=== PATIENT | female | born 1990 | race Caucasian/White ===

== ENCOUNTER 2017-09-05 16:29 | Emergency (ER) | payer OTHER, BC ==
[~2017-09-05] VITALS: Ht 170.2 cm; Wt 85.0 kg
[~2017-09-05 16:29] MED LIST: BCPILLS PO; PRED10TA PO
[2017-09-05 16:38] VITALS: TEMP 36.9; Ht 170.2 cm; Wt 85.0 kg
[2017-09-05] MEDS ORDERED: ESCI10TA17 PO (17:22)
[2017-09-05] MEDS ORDERED: LEVO19.5 IU (17:28)
[2017-09-05] MEDS ORDERED: CLON0.5T3 PO (17:29)
--- NOTE | 2017-09-05 17:30 | EMERGENCY ROOM VISIT NOTE ---
ED Visit Note First contact with patient: 16:40 Chief complaint: Sharps injury at work today HPI: Patient is a [id number] 27-year-old white female who is employed as a [employer] at [employer]. 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 Injury occurred about an hour ago. She was attempting to use a container to draw up urine for a urine culture, when she accidentally punctured her right second finger through her glove. She states that she took her clothes off, washed her hands and put a bandage on her finger, then performed a urine dip on the sample which was negative for blood. The urine sample was not grossly bloody. The patient reports that she is up-to-date with her tetanus vaccination, and has had the hepatitis B vaccination series in the past and believes that she has testing that has confirmed her immunity. Review of Systems: Review of systems as per HPI. All other systems reviewed were negative. At least 6 systems reviewed. Past Medical History: Electronic medical records are reviewed and summarized as above/below. See Problem List. Social History: Lives at home. Occasional alcohol use. Physical Examination: Vital signs reviewed as per nursing notes. GENERAL: Patient is a well-appearing 27-year-old white female who is awake and alert and in no acute distress. SKIN: There is a small puncture wound on the tip of the right second finger, over the proximal phalanx. Otherwise, the skin is intact. There is no active bleeding. There is no wound care necessary. ED Course Patient was seen and examined as above. Her old records are reviewed. She was exposed to a urine sample only, and therefore risk for any type of blood borne pathogens is felt to be minimal. Therefore, this was not certified as a significant exposure. This was discussed with the patient at length and she expressed understanding was comfortable with this. Certainly if there are any concerns, she can follow-up with Employee Health here at the hospital. Patient was discharged home in good condition. Problem List Medical Problems: (1) Anxiety Status: Chronic (2) S/P ACL reconstruction Status: Resolved (3) Tourette's disease Status: Chronic Current/Historical Medications Scheduled Escitalopram (Lexapro), 10 MG PO DAILY Levonorgestrel (Iud) (Kyleena), 19.5 MG IU CONTINOUS Scheduled PRN Clonazepam (Klonopin), 0.5 MG PO BID PRN for Anxiety Allergies Coded Allergies: No Known Allergies (Unverified , 08/05/07) Vital Signs Date Time Temp Pulse Resp B/P (MAP) Pulse Ox O2 Delivery O2 Flow Rate FiO2 09/05/17 17:47 72 18 124/77 98 09/05/17 16:38 36.9 70 16 155/102 98 Room Air Departure Information Impression Primary Impression: Sharps injury Additional Impressions: Work related injury Employee exposure to body fluids Referrals Aleyda Rivera D.O. (PCP) Patient Instructions [facility] Additional Instructions Follow up with Employee Health as needed. Cover wound with antibiotic ointment and a bandage until healed. Monitor for signs of infection (increased redness, pain, swelling or drainage), and return to the ED as needed. Problem Qualifiers
[2017-09-05 17:47] VITALS: BP 124/77; PULSE 72; O2SAT 98
== END 2017-09-05 17:45 | disposition home or self-care (01) ==
LOC: C.EDB 16:30 → C.EDD 17:45
DX: Z77.21 Contact with and (suspected) exposure to potentially hazardous body fluids (principal); W46.1XXA Contact with contaminated hypodermic needle, initial encounter; Y99.0 Civilian activity done for income or pay; F41.9 Anxiety disorder, unspecified

== ENCOUNTER → 2017-09-22 | Outpatient (CLI) | payer BC ==
[~2017-09-22] MED LIST changes: -BCPILLS PO; +CLON0.5T3 PO; +ESCI10TA17 PO; +LEVO19.5 IU; -PRED10TA PO
== END | disposition home or self-care (01) ==
LOC: C.LABSPEC 18:27
PROVIDERS: ATTEND Physician Assistant
DX: R39.9 Unspecified symptoms and signs involving the genitourinary system (principal)